=== PATIENT | male | born 1990 | race Caucasian/White ===

== ENCOUNTER 2021-05-20 22:40 | Emergency (ER) | payer BC, OTHER ==
[2021-05-21 01:14] LABS: CORONAVIRUS COVID-19 NAA NEGATIVE (NEGATIVE); INFLUENZA A NAA NEGATIVE (NEGATIVE); INFLUENZA B NAA NEGATIVE (NEGATIVE)
[2021-05-21] MEDS ORDERED: Ketorolac 30 MG/ML SDV IM ONE (03:00)
[2021-05-21] MEDS ORDERED: predniSONE 20 MG Tab PO ONE (03:00)
--- NOTE | 2021-05-21 03:04 | EDM.PDOC ---
ED HPI GENERAL MEDICAL PROBLEM - General Chief Complaint: General Stated Complaint: COUGH, FATIGUE Time Seen by Provider: 05/21/21 02:04 - History of Present Illness INITIAL COMMENTS - FREE TEXT/NARRATIVE: CHIEF COMPLAINT(S): Cough HISTORY OF PRESENT ILLNESS: This is a 31-year-old man without any significant past medical history who comes to the emergency department with a chief complaint of cough. The patient states that for the last 2 weeks he has been experiencing a cough which has not gotten any better. He states it is intermittently productive of clear/yellow sputum. He denies any fevers or chills but because of the cough he has been experiencing left-sided back and neck pain especially when he coughs. He describes it as achy and rates it as 3 out of 10. He states it is worse when he coughs. He states that he has tried [id number] medications without any significant relief. He states that he also feels like he has some mild wheezing especially when he coughs. He denies any history of asthma or COPD. He denies any bowel incontinence, urinary incontinence, trauma. He denies any saddle anesthesia. He denies any chest pain. He states that he is vaccinated. REVIEW OF SYSTEMS: Constitutional: Denies fever, chills. Eyes: Denies eye pain Ears, Nose, Mouth, & Throat: Denies earache Cardiovascular: Denies chest pain Respiratory: Positive for productive cough and wheezing Gastrointestinal: Denies Nausea, vomiting, diarrhea, hematochezia. Genitourinary: Denies hematuria Skin:Denies a rash MSK: Positive for left-sided neck and back pain Neurological: Denies blurred vision, numbness, tingling, weakness psychiatric: Denies depression PAST MEDICAL HISTORY: As per history of present illness and as reviewed below otherwise noncontributory. SURGICAL HISTORY: As per history of present illness and as reviewed below otherwise noncontributory. SOCIAL HISTORY: As per history of present illness and as reviewed below otherwise noncontributory. FAMILY HISTORY: As per history of present illness and as reviewed below otherwise noncontributory. EXAMINATION OF ORGAN SYSTEMS/BODY AREAS: Constitutional: Blood pressure is 134/73, heart rate 88, respiratory rate 20 with an oxygen saturation of 99% on room air. Temperature 36.7 General: Young man who does not appear to be in acute distress Psychiatric: Appropriate mood and affect. Eyes: No scleral icterus or conjunctival erythema ENMT: Moist mucous membranes. No pharyngeal erythema Cardiovascular: Regular, rate, and rhythm. No gallops, murmurs, or rubs. Bilateral upper extremity pulses symmetric and intact. No peripheral edema. No JVD. Respiratory: Lungs clear to auscultation bilaterally. No wheezes, rales, or rhonchi. Mild expiratory wheezing with forced expiration. Anytime patient takes a deep breath he coughs. Gastrointestinal: Soft, non-tender, non-distended. Normoactive bowel sounds Genitourinary: No suprapubic tenderness Musculoskeletal: Normal range of motion. Left paraspinal muscle tenderness in the cervical region and upper thoracic region. No midline cervical or thoracic tenderness. Skin: No lesions or abrasions. Neurological: Alert, GCS 15 strength and sensation grossly intact in upper and lower extremities bilaterally MEDICAL DECISION MAKING AND COURSE IN THE ED WITH INTERPRETATION/REVIEW OF DIAGNOSTIC STUDIES: This is a 31-year-old man without any significant past medical history who comes to the emergency department with 8 days of worsening cough which is productive with end expiratory wheezing. Patient denies any history of asthma or COPD and the patient's oxygen is appropriate and he speaking in full sentences currently. We will provide the patient with prednisone by mouth and Toradol for pain relief we will obtain a Covid and influenza swab. Laboratory: COVID and influenza are negative. On reevaluation I discussed the results with the patient. At this time I did discuss symptomatic treatment at home. Encouraged them to return to the emergency department. At this time I do believe there is a degree of bronchitis. Provide the patient with prednisone and prescribed patient with prednisone and albuterol. They were amenable to this plan and had no further questions. DISPOSITION: The patient was discharged home in stable condition. The patient will follow up with primary care physician in 3 to 5 days CONDITION: Fair PROCEDURES: None FINAL IMPRESSION(S)/DIAGNOSES: 1. Acute bronchitis Andrea Borges M.D. Headache Pain Score (Numeric/FACES): 3 - Related Data Allergies Allergy/AdvReac Type Severity Reaction Status Date / Time No Known Allergies Allergy Verified 05/21/21 00:43 Home Meds: Home Meds Albuterol Sulfate [Albuterol Sulfate Hfa] 8.5 gm IH Q4HR PRN #1 [email or web address] 05/21/21 [Rx] predniSONE [Prednisone] 50 mg PO DAILY #5 tablet 05/21/21 [Rx] Social & Family History - Tobacco Use Second Hand Smoke Exposure: No - Caffeine Use Caffeine Use: Reports: None - Recreational Drug Use Recreational Drug Use: No ED ROS GENERAL - Review of Systems Review Of Systems: See Below ED EXAM, GENERAL - Physical Exam Exam: See Below Course - Vital Signs Last Recorded V/S: Last Vital Signs Temp 36.7 C 05/21/21 00:26 Pulse 77 05/21/21 03:30 Resp 16 05/21/21 03:30 BP 123/62 05/21/21 03:30 Pulse Ox 98 05/21/21 03:30 - Orders/Labs/Meds Labs: Laboratory Tests 05/21/21 Range/Units 00:25 Influenza Type A RNA NEGATIVE (NEGATIVE) Influenza Type B RNA NEGATIVE (NEGATIVE) SARS-CoV-2 RNA ([facility]) NEGATIVE (NEGATIVE) Meds: Medications Discontinued Medications Generic Name Dose Route Start Last Admin Trade Name Freq PRN Reason Stop Dose Admin Ketorolac Tromethamine 30 mg 05/21/21 03:00 05/21/21 03:22 Ketorolac 30 Mg/Ml Sdv IM 05/21/21 03:01 30 mg ONETIME ONE Administration Prednisone 60 mg 05/21/21 03:00 05/21/21 03:21 Prednisone 20 Mg Tab PO 05/21/21 03:01 60 mg ONETIME ONE Administration Departure - Departure Time of Disposition: 03:02 Disposition: Home, Self-Care 01 Condition: Fair Clinical Impression: Bronchitis - Discharge Information *PRESCRIPTION DRUG MONITORING PROGRAM REVIEWED*: No *COPY OF PRESCRIPTION DRUG MONITORING REPORT IN PATIENT SWETA: No Prescriptions: Albuterol Sulfate [Albuterol Sulfate Hfa] 8.5 gm IH Q4HR PRN #1 [email or web address] PRN Reason: Wheezing predniSONE [Prednisone] 50 mg PO DAILY #5 tablet Instructions: Acute Bronchitis, Adult, [id number] Referrals: PCP,None [Primary Care Provider] - Forms: ED Department Discharge Additional Instructions: Your evaluated today on an emergent basis. At this time your Covid and influenza are negative. At this time I will treat you as bronchitis given your coughing and the duration of your symptoms. Please use the albuterol inhaler as needed every 4 hours for wheezing and shortness of breath. Please take prednisone daily for the next 5 days. For the aches and pains I would like you to take Tylenol and Motrin alternating for pain relief. If you have any worsening chest pain or shortness of breath please return to the emergency department. Otherwise follow-up with your primary care physician in 3 to 5 days. [facility] [address] [place] [address] [facility] [address] [place] [id number] The patient is informed of any results of their evaluation and diagnostic workup and all questions are answered. They are given discharge instructions and return precautions. The patient is stable for discharge. The patient states they understand and agree with the plan and that they will return if their symptoms get worse or if they have any new concerns. The following information is given to patients seen in the emergency department who are being discharged to home. This information is to outline your options for follow-up care. We provide all patients seen in our emergency department with a follow-up referral. The need for follow-up, as well as the timing and circumstances, are variable depending upon the specifics of your emergency department visit. If you don't have a primary care physician on staff, we will provide you with a referral. We always advise you to contact your personal physician following an emergency department visit to inform them of the circumstance of the visit and for follow-up with them and/or the need for any referrals to a consulting specialist. The emergency department will also refer you to a specialist when appropriate. This referral assures that you have the opportunity for follow-up care with a specialist. All of these measure are taken in an effort to provide you with optimal care, which includes your follow-up. Under all circumstances we always encourage you to contact your private physician who remains a resource for coordinating your care. When calling for follow-up care, please make the office aware that this follow-up is from your recent emergency room visit. If for any reason you are refused follow-up, please contact the [facility] Emergency Department at and asked to speak to the emergency department charge nurse. Sepsis Event Note (ED) - Evaluation Sepsis Screening Result: No Definite Risk
== END 2021-05-21 03:30 | disposition home or self-care (01) ==
LOC: MW.ED 22:40
DX: J20.9 Acute bronchitis, unspecified (principal); Z20.822 Contact with and (suspected) exposure to COVID-19
CPT/HCPCS: 0240U; 96372; 99283; A9270; J1885

== ENCOUNTER 2022-05-09 07:06 | Emergency (ER) | payer BC ==
[2022-05-09] MEDS ORDERED: Acetaminophen 500 MG Tab PO ONE (07:09)
[2022-05-09] MEDS ORDERED: Ibuprofen 800 MG Tab PO ONE (07:09)
[2022-05-09 07:54] LABS: CORONAVIRUS COVID-19 NAA NEGATIVE (NEGATIVE); INFLUENZA A NAA POSITIVE (NEGATIVE); INFLUENZA B NAA NEGATIVE (NEGATIVE); RESPIRATORY SYNCYTIAL VIR NAA NEGATIVE (NEGATIVE)
== END 2022-05-09 08:08 | disposition home or self-care (01) ==
LOC: MW.ED 07:06
DX: J10.1 Influenza due to other identified influenza virus with other respiratory manifestations (principal); Z20.822 Contact with and (suspected) exposure to COVID-19
CPT/HCPCS: 0241U; 99283; A9270